=== PATIENT | male | born 1975 ===

== ENCOUNTER 2017-06-09 19:50 | Emergency (ER) | payer OTHER ==
[~2017-06-09] VITALS: Ht 182.9 cm; Wt 94.9 kg
[2017-06-09 19:53] VITALS: TEMP 36.9; Ht 182.9 cm; Wt 94.9 kg
--- NOTE | 2017-06-09 20:19 | EMERGENCY ROOM VISIT NOTE ---
History Report prepared by Jeannine: John Paul Win Under the Supervision of: Dr. Rudolph Godwin M.D. First contact with patient: 19:58 Chief Complaint: OTHER COMPLAINT Stated Complaint: ABNORMAL LABS-ACETAMINOPHEN LEVEL History of Present Illness The patient is a 42 year old male who presents to the Emergency Room with evaluation constant of acetaminophen overdose. He notes having his tooth pulled yesterday morning and was prescribed Tylenol for the pain. He had his blood test today and was advised to come in to the ED. He has taken 60 tablets four to five tablets every twenty minutes to an hour between 3 pm yesterday to 10 am this morning. He notes the Tylenol is extra strength. He notes his tooth pain has dissipated. He denies any nausea or vomiting. He has a history of asthma and denies taking aspirin. He is a prisoner of [facility]., He denies any nausea or vomiting or GI symptoms Source of History: patient Onset: [employer] Quality: other (high acetaminophen levels) Timing: other (sudden) Associated Symptoms: No nausea, No vomiting Note: His tooth pain has dissipated. Review of Systems See HPI for pertinent positives & negatives. A total of 10 systems reviewed and were otherwise negative. Past Medical & Surgical No PMHx or PSHx reported. Family History No pertinent family history obtained. Social History Smoking Status: Never Smoker Alcohol Use: none Marital Status: single Housing Status: other ([facility]) Occupation Status: other (prisoner) Current/Historical Medications Scheduled Atomoxetine HCl (Atomoxetine), 80 MG PO DAILY Bupropion Hcl (Bupropion Hcl Xl), 150 MG PO DAILY Bupropion Hcl (Bupropion Hcl Xl), 300 MG PO DAILY Calcium Carbonate (Tums), 1,000 MG PO DAILY Fluticasone Propionate (Nasal) (Flonase Allergy Relief), 2 SPRAYS DESIREE DAILY Meloxicam (Mobic), 15 MG PO DAILY Scheduled PRN Acetaminophen (Tylenol), 325 MG PO BID PRN for Pain Allergies Coded Allergies: Amoxicillin (Verified Allergy, Unknown, Unknown, 06/09/17) Sulfamethoxazole w/Trimethoprim (Verified Allergy, Unknown, Unknown, ) Uncoded Allergies: PENICILLIN V POTASSIUM (Allergy, Unknown, Unknown, 06/09/17) Physical Exam Vital Signs Date Time Temp Pulse Resp B/P (MAP) Pulse Ox O2 Delivery O2 Flow Rate FiO2 06/10/17 00:38 60 16 134/86 97 Room Air 06/09/17 22:26 62 16 155/101 99 Room Air 06/09/17 19:53 36.9 18 18 186/99 99 Room Air Physical Exam General: Non-ill appearing middle-aged male in no acute distress. HEENT: Normal cephalic atraumatic. Pupils are equal round and reactive to light. Sclerae are anicteric. Extraocular movements are intact. Sclera anicteric. Oropharynx is pink with moist mucous membranes. No swelling of the mouth lips or tongue. Neck: Supple with a midline trachea. No meningeal signs or stiffness, no JVD or bruits. No Stridor. Chest: Clear to auscultation bilaterally. No wheezes or rhonchi. No increased work of breathing. Heart: regular rate and rhythm. Abdomen: Soft nontender, nondistended without rebound guarding or rigidity. Extremities: No cyanosis clubbing or edema. No calf tenderness or assymetry Spine/Back. Non tender to palpation. No CVA tenderness Skin: Good turgor without rashes. Neurologic exam: Cranial nerves two through 12 are intact. Motor and sensation are intact and symmetrical throughout. Medical Decision & Procedures Laboratory Results 06/09/17 20:34 Red Blood Count 5.00, Mean Corpuscular Volume 85.8, Mean Corpuscular Hemoglobin 30.8, Mean Corpuscular Hemoglobin Concent 35.9, Mean Platelet Volume 9.9, Neutrophils (%) (Auto) 61.5, Lymphocytes (%) (Auto) 25.4, Monocytes (%) (Auto) 8.4, Eosinophils (%) (Auto) 4.2, Basophils (%) (Auto) 0.4, Neutrophils # (Auto) 4.26, Lymphocytes # (Auto) 1.76, Monocytes # (Auto) 0.58, Eosinophils # (Auto) 0.29, Basophils # (Auto) 0.03 06/09/17 20:34 Test 06/09/17 20:34 06/09/17 20:38 06/09/17 20:50 06/09/17 23:55 White Blood Count 6.93 K/uL (4.8-10.8) Red Blood Count 5.00 M/uL (4.7-6.1) Hemoglobin 15.4 g/dL (14.0-18.0) Hematocrit 42.9 % (42-52) Mean Corpuscular Volume 85.8 fL (80-100) Mean Corpuscular Hemoglobin 30.8 pg (25-34) Mean Corpuscular Hemoglobin Concent 35.9 g/dl (32-36) Platelet Count 200 K/uL (130-400) Mean Platelet Volume 9.9 fL (7.4-10.4) Neutrophils (%) (Auto) 61.5 % Lymphocytes (%) (Auto) 25.4 % Monocytes (%) (Auto) 8.4 % Eosinophils (%) (Auto) 4.2 % Basophils (%) (Auto) 0.4 % Neutrophils # (Auto) 4.26 K/uL (1.4-6.5) Lymphocytes # (Auto) 1.76 K/uL (1.2-3.4) Monocytes # (Auto) 0.58 K/uL (0.11-0.59) Eosinophils # (Auto) 0.29 K/uL (0-0.5) Basophils # (Auto) 0.03 K/uL (0-0.2) RDW Standard Deviation 38.4 fL (36.4-46.3) RDW Coefficient of Variation 12.4 % (11.5-14.5) Immature Granulocyte % (Auto) 0.1 % Immature Granulocyte # (Auto) 0.01 K/uL (0.00-0.02) Anion Gap 4.0 mmol/L (3-11) Est Creatinine Clear Calc Drug Dose 112.9 ml/min Estimated GFR () 103.6 Estimated GFR (Non- 89.4 BUN/Creatinine Ratio 7.7 (10-20) Calcium Level 8.9 mg/dl (8.5-10.1) Salicylates Level < 1.7 mg/dl (2.8-20) Ethyl Alcohol mg/dL < 3.0 mg/dl (0-3) Urine Opiates Screen NEG (NEG) Urine Methadone, Qualitative NEG (NEG) Urine Barbiturates NEG (NEG) Urine Phencyclidine (PCP) Level NEG (NEG) Ur Amphetamine/Methamphetamine NEG (NEG) MDMA (Ecstasy) Screen POS (NEG) Urine Benzodiazepines Screen NEG (NEG) Urine Cocaine Metabolite NEG (NEG) Urine Marijuana (THC) NEG (NEG) Prothrombin Time 11.4 SECONDS (9.0-12.0) Prothromb Time International Ratio 1.1 (0.9-1.1) Activated Partial Thromboplast Time 27.3 SECONDS (21.0-31.0) Partial Thromboplastin Ratio 1.1 Total Bilirubin 0.3 mg/dl (0.2-1) Direct Bilirubin < 0.1 mg/dl (0-0.2) Aspartate Amino Transf (AST/SGOT) 13 U/L (15-37) Alanine Aminotransferase (ALT/SGPT) 28 U/L (12-78) Alkaline Phosphatase 65 U/L (45-117) Total Protein 6.7 gm/dl (6.4-8.2) Albumin 3.5 gm/dl (3.4-5.0) Lipase 96 U/L (73-393) Acetaminophen Level 4 ug/ml (10-30) Laboratory studies as stated above per my review. ECG Indication: other (high acetaminophen levels) Rate (beats per minute): 64 Rhythm: normal sinus Findings: no acute ischemic change, no ectopy, other (normal intervals) Comparison ECG Date: no prior available ED Course 2001: Past medical records reviewed. The patient was evaluated in room B10, and a complete history and physical examination were performed. 2118: I spoke with [facility] of poison control. We discussed the patients case. She recommends reevaluating the patient's labs at midnight. 2314: I reassessed the patient at this time. He is asymptomatic and is not having any GI symptoms. He is feeling better and resting comfortably. 0005: I ran a second set of labs; there is no indication of NAC or liver failure. 0042: I reassessed the patient at this time. He is feeling better and resting comfortably. 0101: I reassessed the patient at this time. He is feeling better and resting comfortably. I discussed the results and treatment plan with the patient. I answered all pertaining questions that he had. He expressed understanding and verbalized agreement. The patient will be discharged back to [facility]. Medical Decision Differentials include, but are not limited to: acetaminophen overdose, toxicology process, and electrolyte or metabolic abnormality. This patient comes in as described above. He reports taking at least 60 Tylenol over about 12 hour period starting 3:00 PM yesterday through 10 or 11 AM today for toothache. He says he was just trying to help his pain. He denies that he was trying to hurt himself. He has no symptoms and specifically he has no GI symptoms. His initial acetaminophen level was high. IV access was established and blood work was obtained. His blood work here shows acetaminophen level that has come down significantly. He has normal LFTs as well as normal coagulation studies. He has nothing to suggest any coingestions. He has no findings to suggest arrhythmia or cardiac events. I did discuss the case with the [place] [facility] and they recommended we repeat a level at 12:00 midnight. His labs continue to look normal and improved and he continues to be asymptomatic and in light of this they do not feel that he needs N-acetylcysteine. The patient has not taken any Tylenol for over 12 hours at that point, closer to 14, and has no evidence of liver damage and they do not feel that he needs treatment. I did call and talk to his [facility] again when the second level back and they did confirm this. The patient will be discharged back to [place]. He should avoid any further Tylenol/acetaminophen and return if any new problems or concerns. Medication Reconcilliation Current Medication List: was personally reviewed by me Blood Pressure Screening Patient's blood pressure: Elevated blood pressure (mildly) Blood pressure disposition: Referred to PCP Consults Time Called: 2114 Consulting Physician: [facility] control Returned Call: [phone] I spoke with [facility] of poison control. We discussed the patients case. She recommends reevaluating the patient's labs at midnight. Impression Primary Impression: Acetaminophen overdose Scribe Attestation The scribe's documentation has been prepared under my direction and personally reviewed by me in its entirety. I confirm that the note above accurately reflects all work, treatment, procedures, and medical decision making performed by me. Departure Information Referrals No Doctor, Assigned (PCP) Patient Instructions My [facility]
[2017-06-09] MEDS ORDERED: BUPR150T5 PO (20:44)
[2017-06-09] MEDS ORDERED: CALC500C3 PO (20:44)
[2017-06-09] MEDS ORDERED: BUPR300T43 PO (20:44)
[2017-06-09] MEDS ORDERED: FLUT0.15 NAE (20:44)
[2017-06-09] MEDS ORDERED: ATOM80CA PO (20:44)
[2017-06-09 20:45] LABS: BASO % 0.4 %; BASO ABS # 0.03 K/uL (0-0.2); COMPLETE YES; EOS % 4.2 %; HEMATOCRIT 42.9 % (42-52); IG% 0.1 %; LYMPH % 25.4 %; LYMPH ABS # 1.76 K/uL (1.2-3.4); MEAN CELL VOLUME 85.8 fL (80-100); MEAN CORPUSCULAR HEMOGLOBIN 30.8 pg (25-34); MEAN CORPUSCULAR HGB CONC 35.9 g/dl (32-36); MEAN PLATELET VOLUME 9.9 fL (7.4-10.4); MONO % 8.4 %; NEUT % 61.5 %; PLATELET COUNT 200 K/uL (130-400); WHITE BLOOD COUNT 6.93 K/uL (4.8-10.8)
[2017-06-09] MEDS ORDERED: MELO15TA4 PO (20:46)
[2017-06-09] MEDS ORDERED: ACET-1311 PO (20:48)
[2017-06-09 21:05] LABS: BLOOD UREA NITROGEN 8 mg/dl (7-18); BUN/CREATININE RATIO 7.7 (10-20); CALCIUM 8.9 mg/dl (8.5-10.1); CARBON DIOXIDE 29 mmol/L (21-32); CHLORIDE 105 mmol/L (98-107); CREATININE 1.04 mg/dl (0.60-1.40); GLUCOSE 99 mg/dl (70-99); SODIUM 138 mmol/L (136-145)
[2017-06-09 21:06] LABS: INR 1.1 (0.9-1.1); PARTIAL THROMBOPLASTIN RATIO 1.1; PROTHROMBIN TIME (PATIENT) 11.6 SECONDS (9.0-12.0)
[2017-06-09 21:07] LABS: ACETAMINOPHEN 6 ug/ml (10-30); ALKALINE PHOSPHATASE 67 U/L (45-117); ALT/SGPT 26 U/L (12-78); AST/SGOT 15 U/L (15-37)
[2017-06-09 21:27] LABS: BENZODIAZEPINE, URINE NEG (NEG); COCAINE,URINE NEG (NEG); PHENCYCLIDINE, URINE NEG (NEG)
[2017-06-10 00:12] LABS: INR 1.1 (0.9-1.1); PARTIAL THROMBOPLASTIN RATIO 1.1; PROTHROMBIN TIME (PATIENT) 11.4 SECONDS (9.0-12.0)
[2017-06-10 00:23] LABS: ALKALINE PHOSPHATASE 65 U/L (45-117); ALT/SGPT 28 U/L (12-78); AST/SGOT 13 U/L (15-37)
[2017-06-10 00:38] VITALS: BP 134/86; PULSE 60; O2SAT 97
== END 2017-06-10 01:00 | disposition home or self-care (01) ==
LOC: C.EDB 19:51
DX: T39.1X1A Poisoning by 4-Aminophenol derivatives, accidental (unintentional), initial encounter (principal); Z79.899 Other long term (current) drug therapy; Z88.1 Allergy status to other antibiotic agents; Z88.2 Allergy status to sulfonamides

== ENCOUNTER → 2017-06-09 | Outpatient (CLI) | payer OTHER ==
[~2017-06-09] MED LIST: ACET-1311 PO; ATOM80CA PO; BUPR150T5 PO; BUPR300T43 PO; CALC500C3 PO; FLUT0.15 NAE; MELO15TA4 PO
[2017-06-09 13:49] LABS: TOTAL PROTEIN 7.1 gm/dl (6.4-8.2)
== END ==
LOC: C.LABSPEC 13:22
PROVIDERS: ATTEND Family Medicine
DX: T39.1X4A Poisoning by 4-Aminophenol derivatives, undetermined, initial encounter (principal)